=== PATIENT | female | born 1970 | race American Indian/Alaskan Native ===

== ENCOUNTER 2022-12-03 10:55 | Emergency (ER) | payer OTHER ==
[2022-12-03 11:39] LABS: #Eosinphils 0.1 thou/uL (0.0-0.7); #Monocytes 0.5 thou/uL (0.11-0.59); #Neutrophils 2.5 thou/uL (1.40-6.50); %Basophils 0.7 % (0.0-1.0); %Eosinophils 1.3 % (0.0-10.0); %Lymphocytes 48.1 % (21.0-51.0); %Monocytes 8.7 % (0.0-10.0); Hemoglobin 14.2 g/dL (12.0-16.0); Mean Corpuscular HGB CONC 34.6 g/dL (32.0-36.0); Mean Corpuscular Hemoglobin 32.1 pg (27.0-31.0); Mean Corpuscular Volume 92.8 fl (78.0-98.0); Mean Platelet Volume 10.5 fL (7.4-10.4); Platelet Count 172 10x3/uL (130-400); RBC Distribution Width 11.9 % (11.5-14.5); Red Blood Cell (RBC) Count 4.42 mill/uL (4.20-5.40); White Blood Cell (WBC) Count 6.1 10x3/uL (4.8-10.8)
[2022-12-03 12:09] LABS: Troponin I Less than 0.010 ng/mL (< 0.028)
[2022-12-03 16:04] LABS: Albumin 4.5 g/dL (3.5-5.0)
[2022-12-03 16:05] LABS: Chloride 107 mmol/L (98-107); Potassium 3.4 mmol/L (3.5-5.1); Sodium 137 mmol/L (136-145)
[2022-12-03 16:06] LABS: Calcium 9.6 mg/dL (7.8-10.44)
[2022-12-03 16:07] LABS: Globulin 3.1 g/dL (2.4-3.5); Glucose 177 mg/dL (70-105); Protein, Total 7.6 g/dL (6.0-8.3)
[2022-12-03 16:08] LABS: Anion Gap 12 mmol/L (10-20); Carbon Dioxide 21 mmol/L (22-29)
[2022-12-03 16:09] LABS: Bilirubin, Total 0.3 mg/dL (0.2-1.2)
[2022-12-03 16:10] LABS: Alkaline Phosphatase 115 U/L (40-110); Calc. Creatinine Clearance 0 mL/min (70-130); Estimated GFR 86
[2022-12-03 16:11] LABS: BUN (Urea Nitrogen) 13 mg/dL (9.8-20.1)
[2022-12-03 16:12] LABS: AST (SGOT) 17 U/L (5-34)
[2022-12-03 16:13] LABS: ALT (SGPT) 15 U/L (8-55)
== END 2022-12-03 17:32 | disposition home or self-care (01) ==
LOC: ERS 10:55
DX: R00.2 Palpitations (principal); E78.5 Hyperlipidemia, unspecified; F17.210 Nicotine dependence, cigarettes, uncomplicated
CPT/HCPCS: 36415; 71045; 80053; 83880; 84443; 84484; 85025; 93005